=== PATIENT | female | born 1995 | race African-American/Black ===

== ENCOUNTER 2024-04-03 17:07 | Emergency (ER) | payer OTHER ==
[2024-04-03 17:13] VITALS: BP 112/84; PULSE 95; RESP 20; TEMP 99.3; BMI 19.3
[2024-04-03] MEDS ORDERED: ACETAMINOPHEN 500 MG TABLET (FP) ONE (19:58)
[2024-04-03] MEDS: ACETAMINOPHEN 500 MG TABLET (FP) PO ONE (20:05)
== END 2024-04-03 21:35 | disposition home or self-care (01) ==
LOC: FER 17:07
DX: S13.4XXA Sprain of ligaments of cervical spine, initial encounter (principal); M54.6 Pain in thoracic spine; V49.50XA Passenger injured in collision with unspecified motor vehicles in traffic accident, initial encounter; Y92.410 Unspecified street and highway as the place of occurrence of the external cause
CPT/HCPCS: 72050-TC-FY; 72100-TC-FY; 99284-25